=== PATIENT | female | born 1965 | race Hispanic/Latino ===

== ENCOUNTER 2019-07-30 05:46 | Day surgery (SDC) | payer OTHER ==
[~2019-07-30] VITALS: Ht 144.8 cm; Wt 49.9 kg
[~2019-07-30 05:46] MED LIST: DULA1.5P SQ; LEVO100 PO; MULT-1192 PO; PIOG30TA70 PO; PRAV40TA3 PO; SITA1TAB6 PO; SODIUM CHLORIDE 0.9% 1000ML 1,000 ML IV ONE
[2019-07-30 06:07] VITALS: BP 118/55
[2019-07-30] MEDS ORDERED: PROPOFOL 10 MG/ML 20ML VIAL IV ONE (06:54)
[2019-07-30 07:15] VITALS: BP 97/51
[2019-07-30 07:20] VITALS: BP 100/42
[2019-07-30 07:25] VITALS: BP 108/47
--- NOTE | 2019-07-30 07:36 | NUR ---
pt . left via wheelchair in pvt car no complications, d/c instruction with f/u appt given to spouse.
== END 2019-07-30 07:36 ==
LOC: DAH 05:46 → ENDO 05:46
PROVIDERS: ATTEND Internal Medicine Gastroenterology
DX: K59.01 Slow transit constipation (principal); K63.5 Polyp of colon; K62.1 Rectal polyp; E11.9 Type 2 diabetes mellitus without complications; E78.5 Hyperlipidemia, unspecified; E03.9 Hypothyroidism, unspecified; Z79.84 Long term (current) use of oral hypoglycemic drugs; Z98.890 Other specified postprocedural states; Z90.710 Acquired absence of both cervix and uterus; Z79.899 Other long term (current) drug therapy; Z72.89 Other problems related to lifestyle; Z82.49 Family history of ischemic heart disease and other diseases of the circulatory system; Z83.3 Family history of diabetes mellitus
CPT/HCPCS: 45380; 82948 ×2; A4221; A4222; A4223; A4335; A4606; A4663; J2704; J7030

== ENCOUNTER 2021-05-17 06:56 | Day surgery (SDC) | payer OTHER ==
[2021-05-17] VITALS (7 sets, daily range): BP systolic 104–142; BP diastolic 46–66
[~2021-05-17] VITALS: Ht 144.8 cm; Wt 52.2 kg
[~2021-05-17 06:56] MED LIST changes: +0.9%NACL 1000ML 1,000 ML IV ONE; +ESTR1TAB17 PO; +GLIP10TA9 PO; +LISI2.5T2 PO; -MULT-1192 PO; +MV-M1TAB20 PO; -PIOG30TA70 PO; -PRAV40TA3 PO; +PRAV80TA21 PO; -SITA1TAB6 PO; -SODIUM CHLORIDE 0.9% 1000ML 1,000 ML IV ONE
[2021-05-17] MEDS ORDERED: PROPOFOL 10 MG/ML 20ML VIAL IV ONE (10:03)
== END 2021-05-17 11:00 | disposition home or self-care (01) ==
LOC: DAH 06:56 → ENDO 06:56
PROVIDERS: ATTEND Internal Medicine Gastroenterology
DX: I85.10 Secondary esophageal varices without bleeding (principal); R12 Heartburn; Z20.822 Contact with and (suspected) exposure to COVID-19; K74.69 Other cirrhosis of liver; K31.89 Other diseases of stomach and duodenum; R19.7 Diarrhea, unspecified; I10 Essential (primary) hypertension; E11.9 Type 2 diabetes mellitus without complications; E78.5 Hyperlipidemia, unspecified; E03.9 Hypothyroidism, unspecified; D64.9 Anemia, unspecified; E66.9 Obesity, unspecified; J45.909 Unspecified asthma, uncomplicated; Z98.49 Cataract extraction status, unspecified eye; Z86.010 Personal history of colon polyps; Z83.3 Family history of diabetes mellitus; Z82.49 Family history of ischemic heart disease and other diseases of the circulatory system; Z68.33 Body mass index [BMI] 33.0-33.9, adult; Z90.49 Acquired absence of other specified parts of digestive tract; Z79.899 Other long term (current) drug therapy
CPT/HCPCS: 43239; 82948 ×3; 87635; A4215; A4221; A4222; A4223; A4606; A4620; A4657 ×2; A4663; C9803; J2704; J7030 ×2